=== PATIENT | male | born 1960 | race Caucasian/White ===

== ENCOUNTER → 2022-10-03 09:09 | Outpatient (BNVA) | payer BC, SELFPAY | PROVIDERS: Family Provider Family Medicine; PCP Family Medicine; Visit Provider Family Medicine | DX: I10 Essential (primary) hypertension (principal); E78.5 Hyperlipidemia, unspecified | CPT/HCPCS: 80053; 80061 ==

== ENCOUNTER 2022-10-10 15:20 | Outpatient (CLI) | payer BC, SELFPAY ==
--- NOTE | 2022-10-10 15:40 | XR_ITS ---
WS: [id number] Exam: XR chest 2V* [id number] Date/Time of Exam: 10/10/2022 3:40 PM Reason For Exam: cough No previous exams. Findings: The lungs are clear and fully expanded. Costophrenic angles are sharp. No infiltrates. Bronchovascula r relief appears normal. Cardiac silhouette is unremarkable. Bony elements are intact. XR/XR chest 2V* [id number] IMPRESSION: Unremarkable chest radiograph.
== END 2022-10-10 15:21 | disposition home or self-care (01) ==
PROVIDERS: PCP Family Medicine; Visit Provider Family Medicine
DX: R05.9 Cough, unspecified (principal)
CPT/HCPCS: 71046

== ENCOUNTER → 2022-10-11 08:17 | Outpatient (BNVA) | payer BC, SELFPAY | PROVIDERS: Family Provider Family Medicine; PCP Family Medicine; Visit Provider Clinical Nurse Specialist Adult Health | DX: N41.0 Acute prostatitis (principal); R10.9 Unspecified abdominal pain | CPT/HCPCS: 81000 ==

== ENCOUNTER → 2022-10-31 10:36 | Outpatient (BNVA) | payer BC, SELFPAY | PROVIDERS: Family Provider Family Medicine; PCP Family Medicine; Visit Provider Podiatrist Foot & Ankle Surgery | DX: S92.351A Displaced fracture of fifth metatarsal bone, right foot, initial encounter for closed fracture (principal); X58.XXXA Exposure to other specified factors, initial encounter | CPT/HCPCS: 73630 ==

== ENCOUNTER 2022-10-31 14:44 | Outpatient (CLI) | payer BC, SELFPAY | END 2022-10-31 14:45 | disposition home or self-care (01) | LOC: SPT 14:44 | PROVIDERS: Family Provider Family Medicine; PCP Family Medicine; Visit Provider Podiatrist Foot & Ankle Surgery | DX: Z46.89 Encounter for fitting and adjustment of other specified devices (principal); S92.901D Unspecified fracture of right foot, subsequent encounter for fracture with routine healing; X58.XXXD Exposure to other specified factors, subsequent encounter | CPT/HCPCS: 97760; L4361 ==

== ENCOUNTER 2022-11-17 06:07 | Day surgery (SDC) | payer BC, SELFPAY ==
[2022-11-14 12:21] VITALS: BMI 28.7
[2022-11-17 06:25] VITALS: BP 163/99; PULSE 74; RESP 18; TEMP 35.8; O2SAT 98
[2022-11-17] MEDS: sodium chloride 0.9% 1,000 ML 30 ML IV (06:31)
--- NOTE | 2022-11-17 06:37 | ANES.PREANE2 ---
Pre-Anesthetic Assessment Height/Weight: Height 1.78 m Weight 90.718 kg Temp Pulse Resp BP Pulse Ox O2 Del Method 96.4 F L 74 18 163/99 98 11/17/22 06:25 11/17/22 06:25 11/17/22 06:25 11/17/22 06:25 11/17/22 06:25 11/17/22 06:25 Operation Date: 11/17/22 07:30 Proposed Procedures p 16074 EGD 20618 COlon Z80.0,R10.9(Not Applicable) - DO koffi Beckford Colonoscopy(Not Applicable) - Roddy Long DO Familial anesthetic complications: None Was Beta Britta taken within 24 hours: N/A Was Clonidine taken within 24 hours: N/A Last intake: Intake Last Liquid Date 11/16/22 Last Liquid Time 22:00 Last Solid Date 11/16/22 Last Solid Time 07:00 Social Alcohol (4-5 beers a day) and Tobacco (Marijuana, chews) Exam alert, oriented x 3, clear to auscultation bilaterally and regular rate & rhythm Airway Submandibular: within normal limits Cervical ROM: within normal limits Mallampati: Class III Dentition: full Comments: Comments: Front tooth crown History/ROS No significant history except as noted and No significant complaints Pulmonary Cough CV/HEM Hypertension None reported Hepatic None reported GI Gastroesophageal Reflux Disease (Controlled with meds) Metabolic Hyperlipidemia Musc/skel Lower Back Pain Neuropsych None reported Anesthetic Plan ASA status: 3 Anesthesia: Anesthesia Evaluation, General and MAC Risk of > 500 ml blood loss (7ml/kg in children): No Medications/Allergies Home Medications Medication Instructions Recorded Confirmed Last Taken Type atorvastatin 10 mg tablet 10 mg PO DAILY 10/02/22 11/14/22 11/16/22 History losartan 100 mg tablet 100 mg PO DAILY 10/02/22 11/14/22 11/16/22 History pantoprazole 40 mg tablet,delayed 40 mg PO BID 6 weeks #84 tabs 10/25/22 11/14/22 11/16/22 Rx release (Protonix) CAM boot #1 ea 10/31/22 10/31/22 11/16/22 Rx Allergies Allergy/AdvReac Type Severity Reaction Status Date / Time No Known Allergies Allergy Verified 11/14/22 12:19 Current Medications Generic Name Dose Route Start Last Admin Trade Name Freq PRN Reason Stop Dose Admin Sodium Chloride 1,000 mls @ 30 mls/hr 11/16/22 14:30 11/17/22 06:31 Sodium Chloride 0.9% IV 11/17/22 14:29 30 mls/hr .Q24H MIGEL Administration PFSH Anesthesia Medical History Family history of colon cancer Hyperlipidemia Hypertension Surgical History No pertinent past surgical history Social History Smoking and tobacco status: current every day smoker smokeless tobacco Alcohol intake: current Alcohol intake frequency: holidays/special occasions only Data Anesthesia Cardiac Studies: No Data to Display
--- NOTE | 2022-11-17 07:41 | W.PM.OPSUD ---
Surgery/Procedure H&P Update DATE OF PROCEDURE: November 17, 2022 DATE H&P PERFORMED: 10/25/22 PLANNED PROCEDURE: Operation Date: 11/17/22 07:30 Proposed Procedures p 64775 EGD 52793 COlon Z80.0,R10.9(Not Applicable) - DO koffi Beckford Colonoscopy(Not Applicable) - Roddy Long DO
[2022-11-17 08:11] VITALS: BP 112/72; PULSE 69; RESP 16; TEMP 36.2; O2SAT 96
[2022-11-17 08:25] VITALS: BP 120/72; PULSE 66; RESP 16; O2SAT 96
--- NOTE | 2022-11-17 13:23 | ANE.PACU2 ---
Inpatient post-anesthesia follow up: Airway intact: Yes Vital signs: Temperature 97.1 F Pulse Rate 66 Respiratory Rate 16 Blood Pressure 120/72 Pulse Oximetry 96 Oxygen Delivery Me thod Room Air Oxygen Flow Rate 2 Fraction of Inspir ed Oxygen Hydration adequate: Yes Nausea and vomiting: No Pain level: 1 Mental status: Baseline
== END 2022-11-17 08:44 | disposition home or self-care (01) ==
PROVIDERS: PCP Family Medicine; Visit Provider Surgery
PROC: 0DJ08ZZ Inspection of Upper Intestinal Tract, Via Natural or Artificial Opening Endoscopic (ICD-10-PCS; CPT 43235; principal; 2022-11-17 07:30)
PROC: 0DJD8ZZ Inspection of Lower Intestinal Tract, Via Natural or Artificial Opening Endoscopic (ICD-10-PCS; CPT 45378; 2022-11-17 07:30)
DX: Z12.11 Encounter for screening for malignant neoplasm of colon (principal); K57.30 Diverticulosis of large intestine without perforation or abscess without bleeding; K64.8 Other hemorrhoids; D12.3 Benign neoplasm of transverse colon; K29.50 Unspecified chronic gastritis without bleeding; K44.9 Diaphragmatic hernia without obstruction or gangrene; Z80.0 Family history of malignant neoplasm of digestive organs; I10 Essential (primary) hypertension; E78.5 Hyperlipidemia, unspecified
CPT/HCPCS: 43239; 45385; 88305; 88342; J2704; J7030

== ENCOUNTER → 2023-05-01 08:09 | Outpatient (BNVA) | payer BC, SELFPAY | PROVIDERS: PCP Family Medicine; Visit Provider Family Medicine | DX: E78.5 Hyperlipidemia, unspecified (principal); I10 Essential (primary) hypertension | CPT/HCPCS: 80053; 80061 ==

== ENCOUNTER → 2023-08-22 12:05 | Outpatient (BNVA) | payer BC, SELFPAY | PROVIDERS: PCP Family Medicine; Visit Provider Clinical Nurse Specialist Adult Health | DX: J06.9 Acute upper respiratory infection, unspecified (principal) | CPT/HCPCS: 87071; 87400; 87880 ==

== ENCOUNTER → 2024-04-14 11:23 | Outpatient (BNVA) | payer BC, SELFPAY | PROVIDERS: PCP Family Medicine; Visit Provider Podiatrist Foot & Ankle Surgery | DX: S86.011A Strain of right Achilles tendon, initial encounter; X58.XXXA Exposure to other specified factors, initial encounter; Y93.73 Activity, racquet and hand sports | CPT/HCPCS: 73610 ==

== ENCOUNTER 2024-04-14 12:11 | Outpatient (CLI) | payer BC, SELFPAY | END 2024-04-14 12:12 | disposition home or self-care (01) | LOC: SPT 12:12 | PROVIDERS: PCP Family Medicine; Visit Provider Podiatrist Foot & Ankle Surgery | DX: Z46.89 Encounter for fitting and adjustment of other specified devices (principal); S99.911D Unspecified injury of right ankle, subsequent encounter; X58.XXXD Exposure to other specified factors, subsequent encounter | CPT/HCPCS: L3170 ==

== ENCOUNTER 2024-04-16 13:00 | Outpatient (CLI) | payer BC, SELFPAY ==
--- NOTE | 2024-04-16 13:15 | MR_ITS ---
WS: [id number] MRI RIGHT ANKLE WITHOUT CONTRAST. COMPARISON: 04/14/2024 Multiplanar, multisequence imaging is performed without contrast. No marrow edema or acute fracture. There is no fracture at the base of the fifth metatarsal. On a cindy or radiograph there was a well-corticated remote avulsion fracture involving the proximal fifth metat arsal. There is no acute edema at this location. Talus and navicular are normal. No significant joint effusion. Achilles tendon is abnormal. There is thinning and abnormal signal involving the Achilles tendon. Luis roximately 9 cm from the calcaneal insertion there is a very small fluid-filled gap in the the more p roximal tendon is wavy. There is tendinopathy. There is increased fluid and edema surrounding the ten don. Peroneal brevis and longus tendons are normal. There is a small amount of fluid in the flexor halluci s longus tendon sheath. The posterior tibialis tendon and the flexor digitorum longus tendons are nor mal. There is a small amount of fluid with also within the extensor digitorum longus tendon sheath. T here is a moderate amount of edema surrounding the ankle. Greatest at the site of the Achilles tendon tear. No osteochondral lesions. Anterior posterior talofibular ligaments and deltoid ligament are intact. S ubtalar joint is negative. Spring ligament is poorly visualized. MR/MR ankle RT wo con* [id number] IMPRESSION: 1. No acute fracture RIGHT ankle. 2. Short segment full-thickness tear involving the Achilles tendon, 9 cm proxi mal to the calcaneal insertion. The more proximal tendon is wavy. There is asso ciated tendinopathy and edema at the site of the tear. 3. No joint effusion. 4. Peroneal tendons are normal. 5. Small amount of fluid in the extensor digitorum longus tendon sheath.
== END 2024-04-16 13:01 | disposition home or self-care (01) ==
LOC: RAD 13:00
PROVIDERS: PCP Family Medicine; Visit Provider Podiatrist Foot & Ankle Surgery
DX: S86.011A Strain of right Achilles tendon, initial encounter (principal)
CPT/HCPCS: 73721

== ENCOUNTER 2024-06-04 08:19 | Outpatient (RCR) | payer BC, SELFPAY | END 2024-06-21 23:59 | disposition home or self-care (01) | LOC: SPT 08:19 | PROVIDERS: Visit Provider Podiatrist Foot & Ankle Surgery | DX: S86.001D Unspecified injury of right Achilles tendon, subsequent encounter (principal); X58.XXXD Exposure to other specified factors, subsequent encounter | CPT/HCPCS: 97110; 97161 ==

== ENCOUNTER → 2024-06-25 08:44 | Outpatient (BNVA) | payer BC, SELFPAY | PROVIDERS: PCP Family Medicine; Visit Provider Family Medicine | DX: L98.9 Disorder of the skin and subcutaneous tissue, unspecified (principal) | CPT/HCPCS: 88305 ==

== ENCOUNTER 2024-07-01 12:51 | Outpatient (RCR) | payer BC, SELFPAY | END 2024-07-21 23:59 | disposition home or self-care (01) | LOC: SPT 12:51 | PROVIDERS: PCP Family Medicine; Visit Provider Podiatrist Foot & Ankle Surgery | DX: S86.001D Unspecified injury of right Achilles tendon, subsequent encounter (principal); X58.XXXD Exposure to other specified factors, subsequent encounter | CPT/HCPCS: 97110 ==

== ENCOUNTER 2024-07-22 06:00 | Outpatient (RCR) | payer BC, SELFPAY | END 2024-07-25 23:59 | disposition home or self-care (01) | LOC: SPT 06:00 | PROVIDERS: PCP Family Medicine; Visit Provider Podiatrist Foot & Ankle Surgery | DX: S86.001D Unspecified injury of right Achilles tendon, subsequent encounter (principal); R26.89 Other abnormalities of gait and mobility; X58.XXXD Exposure to other specified factors, subsequent encounter | CPT/HCPCS: 97110 ==

== ENCOUNTER → 2024-09-11 08:08 | Outpatient (BNVA) | payer BC, SELFPAY | PROVIDERS: PCP Family Medicine; Visit Provider Family Medicine | DX: R73.03 Prediabetes (principal); I12.9 Hypertensive chronic kidney disease with stage 1 through stage 4 chronic kidney disease, or unspecified chronic kidney disease; N18.9 Chronic kidney disease, unspecified; E78.5 Hyperlipidemia, unspecified | CPT/HCPCS: 80053; 80061; 83036; 85025 ==

== ENCOUNTER → 2025-06-30 11:04 | Outpatient (BNVA) | payer OTHER, SELFPAY | PROVIDERS: PCP Family Medicine; Visit Provider Family Medicine | DX: Z00.00 Encounter for general adult medical examination without abnormal findings (principal); I10 Essential (primary) hypertension; E78.5 Hyperlipidemia, unspecified; Z80.0 Family history of malignant neoplasm of digestive organs | CPT/HCPCS: 80053; 80061; 84153; 85025 ==